=== PATIENT | male | born 1990 | race Two or more races ===

== ENCOUNTER 2025-09-09 18:14 | Emergency (ER) | payer OTHER ==
[~2025-09-09] VITALS: Ht 172.7 cm; Wt 119.7 kg
[2025-09-09] MEDS ORDERED: METHYLPREDNISOLONE SOD SUCC 125 MG VIAL IV ONE (21:00)
[2025-09-09] MEDS ORDERED: HYDROCODONE/CHLORPHEN P-STIREX 5 ML ML PO ONE (21:00)
[2025-09-09] MEDS ORDERED: 0.9 % SODIUM CHLORIDE 1,000 ML IV SCH (21:00)
[2025-09-09] MEDS ORDERED: IPRATROPIUM/ALBUTEROL SULFATE 3 ML AMPUL.NEB IH SCH (21:00)
[2025-09-10 00:30] LABS: BASO % 0.9 % (0.1-1.2); EOS # 0.03 (0.04-0.54); EOS % 0.7 % (0.7-7.0); LYMPH # 1.40 (1.18-3.74); LYMPH % 32.9 % (19.3-53.1); MEAN PLATELET VOLUME 9.60 fl (9.4-12.4); MONO # 0.39 (0.24-0.82); MONO % 9.2 % (4.7-12.5); NEUT # 2.36 (1.56-6.13); NEUT % 55.6 % (34.0-71.1); RED CELL DISTRIBUTION WIDTH 13.2 % (11.6-14.4)
[2025-09-10 00:54] LABS: ALT/SGPT 68.0 U/L (12-78); AST/SGOT 28.0 U/L (15-37); BILIRUBIN TOTAL 0.4 mg/dL (0.3-1.2); BUN CREA RATIO 22.0 (7.0-25.0); CREATININE SERUM 0.87 mg/dL (0.70-1.30); GFR 100.45; GLOBULINA 4.3 G/DL (2.4-3.5); GLUCOSE FASTING 88.0 mg/dL (65-100); OSMOLALITY SERUM 283.0 MOSM/KG (275-295)
[2025-09-10 01:12] LABS: COVID-19 AG NEGATIVE (NEGATIVE)
[2025-09-10] MEDS ORDERED: MEDROLPACK PO (01:20)
[2025-09-10] MEDS ORDERED: MUCINEX DM ER1 EAC1 PO (01:20)
[2025-09-10] MEDS ORDERED: ZITHROMAX500 MG PO (01:20)
[2025-09-10] MEDS ORDERED: SINGULAIR10 MG PO (01:20)
[2025-09-10] MEDS ORDERED: IPRAT-ALBUT 0.5-3 ML IH (01:20)
== END 2025-09-10 02:15 | disposition home or self-care (01) ==
LOC: ER 18:15
PROVIDERS: General Practice
DX: J45.901 Unspecified asthma with (acute) exacerbation (principal); E66.89 Other obesity not elsewhere classified; B34.9 Viral infection, unspecified; Z20.822 Contact with and (suspected) exposure to COVID-19